=== PATIENT | female | born 1995 | race Two or more races ===

== ENCOUNTER 2020-09-15 20:40 | Emergency (ER) | payer OTHER ==
[~2020-09-15] VITALS: Ht 154.9 cm; Wt 97.5 kg
== END 2020-09-16 00:08 | disposition home or self-care (01) ==
LOC: ER 20:40
DX: O26.891 Other specified pregnancy related conditions, first trimester (principal); R10.2 Pelvic and perineal pain; Z3A.10 10 weeks gestation of pregnancy

== ENCOUNTER 2020-10-04 15:36 | Emergency (ER) | payer OTHER ==
[~2020-10-04] VITALS: Ht 154.9 cm; Wt 97.1 kg
[2020-10-04] MEDS ORDERED: PRENATAL + DHA1 EAC1 (15:43)
== END 2020-10-04 20:17 | disposition home or self-care (01) ==
LOC: ER 15:36
DX: O46.8X2 Other antepartum hemorrhage, second trimester (principal); O03.6 Delayed or excessive hemorrhage following complete or unspecified spontaneous abortion; Z3A.14 14 weeks gestation of pregnancy

== ENCOUNTER 2021-08-02 09:46 | Emergency (ER) | payer OTHER ==
[~2021-08-02] VITALS: Ht 154.9 cm; Wt 98.9 kg
[~2021-08-02 09:46] MED LIST: PRENATAL + DHA1 EAC1
== END 2021-08-02 16:16 | disposition home or self-care (01) ==
LOC: ER 09:46
DX: O20.9 Hemorrhage in early pregnancy, unspecified (principal); Z3A.12 12 weeks gestation of pregnancy; Z20.822 Contact with and (suspected) exposure to COVID-19